=== PATIENT | female | born 1975 | race Asian ===

== ENCOUNTER 2020-08-10 15:28 | Emergency (ER) | payer BC ==
[2020-08-10 18:56] LABS: Bilirubin Neg (Negative); Blood, Urine Negative (Negative); Clarity Clear (Clear); Glucose, Urine (Dipstick) Normal (Negative); Ketone, Urine Negative (Negative); Leukocyte 25 (Negative); Nitrite Negative (Negative); Protein, Urine (Dipstick) Negative (Neg-Trace); Urobilinogen Normal mg/dL (Less than 2)
[2020-08-10 19:03] LABS: #Eosinphils 0.2 10x3/uL (0.0-0.5); #Monocytes 0.4 10x3/uL (0.0-1.1); #Neutrophils 5.2 10x3/uL (1.5-8.4); %Basophils 0.4 % (0.0-2.0); %Eosinophils 2.1 % (0.0-6.0); %Lymphocytes 22.6 % (18.0-47.0); %Monocytes 5.3 % (0.0-10.0); %Neutrophils 69.3 % (40.0-75.0); Hemoglobin 8.2 g/dL (12.0-15.5); Mean Corpuscular HGB CONC 30.5 g/dL (32.0-36.0); Mean Corpuscular Hemoglobin 25.3 pg (27.0-33.0); Mean Platelet Volume 9.6 fl (7.4-10.4); Platelet Count 473 10x3/uL (150-450); RBC Distribution Width 15.9 % (11.5-14.5); Red Blood Cell (RBC) Count 3.24 10x6/uL (3.90-5.03); White Blood Cell (WBC) Count 7.5 10x3/uL (3.5-10.5)
[2020-08-10 19:19] LABS: Bacteria/HPF 2+ HPF (None Seen); RBC/HPF None Seen HPF (0-3); WBC/HPF 0-3 HPF (0-3)
[2020-08-10 19:30] LABS: Anion Gap 14 mmol/L (10-20); BUN (Urea Nitrogen) 17 mg/dL (7.0-18.7); Calc. Creatinine Clearance 0 mL/min (70-130); Calcium 9.2 mg/dL (7.8-10.44); Carbon Dioxide 26 mmol/L (22-29); Chloride 103 mmol/L (98-107); Glucose 97 mg/dL (70-105); Potassium 3.9 mmol/L (3.5-5.1); Sodium 139 mmol/L (136-145)
== END 2020-08-10 19:52 | disposition home or self-care (01) ==
LOC: CSHERS 15:28
DX: G57.10 Meralgia paresthetica, unspecified lower limb (principal); M06.9 Rheumatoid arthritis, unspecified
CPT/HCPCS: 80048; 81003; 81015; 85025; 93970

== ENCOUNTER 2021-02-08 13:11 | Outpatient (CLI) | payer BC | END 2021-02-08 13:12 | disposition home or self-care (01) | LOC: CSHRAD 13:11 | DX: M50.30 Other cervical disc degeneration, unspecified cervical region (principal); M79.642 Pain in left hand; M79.641 Pain in right hand; M25.562 Pain in left knee; M25.561 Pain in right knee; M47.812 Spondylosis without myelopathy or radiculopathy, cervical region; R22.32 Localized swelling, mass and lump, left upper limb; M25.832 Other specified joint disorders, left wrist | CPT/HCPCS: 72040 ==